=== PATIENT | male | born 1960 | race Asian ===

== ENCOUNTER 2016-12-08 05:20 | Day surgery (SDC) | payer OTHER ==
[2016-12-07 15:32] LABS: HEMATOCRIT 43.8 % (40.0-51.0); HEMOGLOBIN 14.8 g/dL (13.6-17.8)
--- NOTE | ~2016-12-08 | OP ---
Record Of Operation [facility] [address] [place]. 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 OPERATION PERFORMED: Right internal jugular Port-A-Cath placement under ultrasound and fluoroscopic guidance. ANESTHESIA: General. ESTIMATED BLOOD LOSS: Less than 10 mL. IV FLUIDS: Adequate. DESCRIPTION OF OPERATION: After appropriate sedation, the patient was prepped and draped in proper sterile fashion. Skin and subcutaneous tissues around the right neck were visualized. He had a patent and pliable right internal jugular vein. Right internal jugular vein was cannulated using a 14-gauge needle under ultrasound guidance. A guidewire was then fed under fluoroscopic guidance just above the right heart. We made a transverse incision over the right chest wall, subcutaneous tissues were incised down to pectoralis fascia, and a pocket was bluntly dissected. The catheter was then fed through the introducer sheath with the tip being just above the right heart. The catheter was then tunneled subcutaneously to the port pocket and secured to the port. The port was secured to the chest wall using 3-0 Vicryl suture. We confirmed placement radiographically. The port was flushed and aspirated, it flushed and aspirated easily. The skin was closed using interrupted 3-0 Vicryl sutures. Steri-Strips and dressings were then placed. The patient was taken to recovery room in satisfactory condition. SHORTY/JAZIEL Rick Kingsley M.D. / [id number] CC: Rick Kingsley M.D.
[~2016-12-08 05:20] MED LIST: ALEVE220 MG PO; SUDOGEST60 MG PO
== END 2016-12-08 11:10 | disposition home or self-care (01) ==
LOC: SDC 05:20
PROVIDERS: Specialist
PROC: 05HM33Z Insertion of Infusion Device into Right Internal Jugular Vein, Percutaneous Approach (ICD-10-PCS; 2016-12-08)
PROC: B513YZA Fluoroscopy of Right Jugular Veins using Other Contrast, Guidance (ICD-10-PCS; 2016-12-08)
PROC: B543ZZA Ultrasonography of Right Jugular Veins, Guidance (ICD-10-PCS; 2016-12-08)
PROC: 0JH60XZ Insertion of Tunneled Vascular Access Device into Chest Subcutaneous Tissue and Fascia, Open Approach (ICD-10-PCS; principal; 2016-12-08 06:45)
DX: C11.9 Malignant neoplasm of nasopharynx, unspecified (principal); Z87.891 Personal history of nicotine dependence; Z79.899 Other long term (current) drug therapy; Z98.890 Other specified postprocedural states
CPT/HCPCS: 71010; 76000; 77001; 85014; 85018; 93005; C1788; J0690; J2250; J2405; J3010